=== PATIENT | male | born 1990 | race Caucasian/White ===

== ENCOUNTER 2017-03-15 17:27 | Emergency (ER) | payer SELFPAY ==
[2017-03-15 18:18] VITALS: BP 139/70; PULSE 86; RESP 13; TEMP 99.2; O2SAT 100
[2017-03-15 18:37] VITALS: BP 125/73; PULSE 86; RESP 18; TEMP 98.7; O2SAT 96
[2017-03-15] MEDS ORDERED: SODIUM CHLOR 0.9% 1000 ML INJ 1,000 ML IV SCH (18:57)
--- NOTE | 2017-03-15 19:02 | PD ---
HPI Chief Complaint: Alcohol/Drug Intoxication Time Seen by Provider: 18:45 Travel History International Travel<30 days: No Contact w/Intl Traveler<30days: No Traveled to known affect area: No History of Present Illness HPI 26-year-old male presents for evaluation of intoxication. The patient's personal history is limited secondary to patient uncooperativeness. 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 By the time they arrived he was standing and he was verbally aggressive and hostile and not answering many questions. They called the number on his phone and the patient apparently lives in [place]. He was visiting an ex-girlfriend today here in [facility] and he drank a lot of alcohol and she then kicked him out of the apartment after the argument. He was placed in restraints on the ambulance mcmahon prior to coming to the room where he was evaluated after he became physically aggressive [facility] Past Medical History Medical History: Unable to Obtain Past Surgical History Surgical History: Unable to Obtain Social History Alcohol Use: Yes Tobacco Use: No Substance Use: No Allergies-Medications (Allergen,Severity, Reaction): Coded Allergies: No Known Allergies (Verified Allergy, Unknown, 03/15/17) Review of Systems ROS Limitations: Intoxication, Combative Except as stated in HPI: all other systems reviewed are Neg Physical Exam Exam Limitations: Intoxication, Uncooperative Narrative GENERAL: This is a disheveled-appearing male who is agitated, unwilling to answer questions. He is currently in restraints. SKIN: Warm and dry. HEAD: Atraumatic. Normocephalic. EYES: Pupils equal and round. No scleral icterus. No injection or drainage. ENT: No nasal bleeding or discharge. Mucous membranes pink and moist. NECK: Trachea midline. No JVD. CARDIOVASCULAR: Regular rate and rhythm. No murmur appreciated. RESPIRATORY: No accessory muscle use. Clear to auscultation. Breath sounds equal bilaterally. GASTROINTESTINAL: Abdomen soft, non-tender, nondistended. Hepatic and splenic margins not palpable. MUSCULOSKELETAL: No obvious deformities. No clubbing. No cyanosis. No edema. NEUROLOGICAL: Awake and alert. No obvious cranial nerve deficits. Motor grossly within normal limits. Slurred speech, smells of alcohol. PSYCHIATRIC: Insight and judgment appear limited secondary to intoxication. Data Data Last Documented VS Vital Signs Date Time Temp Pulse Resp B/P (MAP) Pulse Ox O2 Delivery O2 Flow Rate FiO2 03/15/17 18:37 98.7 86 18 125/73 (90) 96 Orders Orders Complete Blood Count With Diff (03/15/17 18:57) Comprehensive Metabolic Panel (03/15/17 18:57) Creatine Kinase (Cpk) (03/15/17 18:57) Ct Brain W/O Iv Contrast(Rout) (03/15/17 18:57) Ecg Monitoring (03/15/17 18:57) Iv Access Insert/Monitor (03/15/17 18:57) Sodium Chlor 0.9% 1000 Ml Inj (Ns 1000 M (03/15/17 18:57) Drug Screen, Random Urine (03/15/17 18:57) Alcohol (Ethanol) (03/15/17 18:57) Potassium Chloride (Kcl) (03/15/17 20:45) Lorazepam Inj (Ativan Inj) (03/15/17 21:15) Restraints Violent (03/15/17 21:05) Labs Laboratory Tests Test 03/15/17 19:11 White Blood Count 6.8 TH/MM3 Red Blood Count 5.06 MIL/MM3 Hemoglobin 15.9 GM/DL Hematocrit 46.0 % Mean Corpuscular Volume 91.0 FL Mean Corpuscular Hemoglobin 31.5 PG Mean Corpuscular Hemoglobin Concent 34.5 % Red Cell Distribution Width 13.0 % Platelet Count 366 TH/MM3 Mean Platelet Volume 7.3 FL Neutrophils (%) (Auto) 77.4 % Lymphocytes (%) (Auto) 13.7 % Monocytes (%) (Auto) 7.7 % Eosinophils (%) (Auto) 0.6 % Basophils (%) (Auto) 0.6 % Neutrophils # (Auto) 5.3 TH/MM3 Lymphocytes # (Auto) 0.9 TH/MM3 Monocytes # (Auto) 0.5 TH/MM3 Eosinophils # (Auto) 0.0 TH/MM3 Basophils # (Auto) 0.0 TH/MM3 CBC Comment DIFF FINAL Differential Comment Blood Urea Nitrogen 5 MG/DL Creatinine 0.82 MG/DL Random Glucose 119 MG/DL Total Protein 6.4 GM/DL Albumin 3.6 GM/DL Calcium Level 7.9 MG/DL Alkaline Phosphatase 71 U/L Aspartate Amino Transf (AST/SGOT) 18 U/L Alanine Aminotransferase (ALT/SGPT) 25 U/L Total Bilirubin 0.3 MG/DL Sodium Level 145 MEQ/L Potassium Level 3.2 MEQ/L Chloride Level 110 MEQ/L Carbon Dioxide Level 26.0 MEQ/L Anion Gap 9 MEQ/L Estimat Glomerular Filtration Rate 113 ML/MIN Total Creatine Kinase 72 U/L Ethyl Alcohol Level 362 MG/DL [facility] Medical Decision Making Medical Screen Exam Complete: Yes Emergency Medical Condition: Yes Medical Record Reviewed: Yes Differential Diagnosis Alcohol intoxication, closed head injury, polysubstance abuse Narrative Course The patient was placed on ECG monitoring and pulse oximetry, plan is for basic lab work, IV fluids, CT brain. Lab work notable for alcohol level of 362, potassium level 3.2, oral potassium chloride ordered. The patient's CT imaging reveals no acute abnormality. At this point in time the patient will remain here until he is clinically sober and then he will be discharged. Diagnosis Primary Impression: Alcohol intoxication Qualified Codes: F10.920 - Alcohol use, unspecified with intoxication, uncomplicated Additional Impression: Hypokalemia Med/Other Pt SpecificInfo: No Change to Meds Disposition: 01 DISCHARGE HOME Condition: Stable Zach Rossi Mar 15, 2017 19:02
[2017-03-15 20:17] LABS: ANION GAP 9 MEQ/L (5-15); AST (GOT) 18 U/L (15-37); BLOOD UREA NITROGEN 5 MG/DL (7-18); CHLORIDE 110 MEQ/L (98-107); GLOMERULAR FILTRATION RATE 113 ML/MIN (>89); POTASSIUM 3.2 MEQ/L (3.5-5.1); SODIUM (NA) 145 MEQ/L (136-145)
[2017-03-15 20:19] LABS: AUTOMATED NEUTROPHIL # 5.3 TH/MM3 (1.8-7.7); BASOPHIL % 0.6 % (0.0-2.0); EOSINOPHIL % 0.6 % (0.0-4.0); HEMO FLAGS DIFF FINAL; LYMPH % 13.7 % (9.0-44.0); LYMPHOCYTE # 0.9 TH/MM3 (1.0-4.8); MEAN CORPUSCULAR HEMOGLOBIN 31.5 PG (27.0-34.0); MEAN CORPUSCULAR HGB CONC 34.5 % (32.0-36.0); MONO % 7.7 % (0.0-8.0); NEUT % 77.4 % (16.0-70.0); PLATELET COUNT 366 TH/MM3 (150-450); RED BLOOD COUNT 5.06 MIL/MM3 (4.50-5.90); WHITE BLOOD COUNT 6.8 TH/MM3 (4.0-11.0)
[2017-03-15 20:20] LABS: ALKALINE PHOSPHATASE 71 U/L (45-117); ALT (GPT) 25 U/L (12-78); TOTAL BILIRUBIN ADULT 0.3 MG/DL (0.2-1.0)
[2017-03-15 20:36] LABS: ALCOHOL 362 MG/DL (0-5); CREATINE KINASE 72 U/L (39-308)
[2017-03-15] MEDS ORDERED: POTASSIUM CHLORIDE 20 MEQ CONTROLLED RELEASE TAB PO ONE (20:45)
[2017-03-15] MEDS ORDERED: LORazepam 2 MG/ML VIAL IV PUSH ONE (21:15)
--- NOTE | 2017-03-15 22:48 | RADRPT ---
EXAM DATE/TIME: 03/15/2017 22:21 [place] COMPARISON: No previous studies available for comparison. INDICATIONS : Altered mental status. ETOH. RADIATION DOSE: 56.35 CTDIvol (mGy) MEDICAL HISTORY : Non-responsive. SURGICAL HISTORY : Non-responsive. ENCOUNTER: Initial ACUITY: 1 day PAIN SCALE: 0/10 LOCATION: cranial TECHNIQUE: Multiple contiguous axial images were obtained of the head. Using automated exposure control and adj ustment of the mA and/or kV according to patient size, radiation dose was kept as low as reasonably a chievable to obtain optimal diagnostic quality images. DICOM format image data is available electro nically for review and comparison. FINDINGS: CEREBRUM: The ventricles are normal for age. No evidence of midline shift, mass lesion, hemorrhage or acute in farction. No extra-axial fluid collections are seen. POSTERIOR FOSSA: The cerebellum and brainstem are intact. The 4th ventricle is midline. The cerebellopontine angle i s unremarkable. EXTRACRANIAL: The visualized portion of the orbits is intact. SKULL: The calvaria is intact. No evidence of skull fracture. CONCLUSION: Normal examination. Yosi Holloway MD on March 15, 2017 at 22:46 Board Certified Radiologist. This report was verified electronically.
[2017-03-16 06:13] VITALS: BP 135/74; PULSE 82; RESP 16; O2SAT 98
[2017-03-16 10:06] VITALS: BP 128/72; TEMP 98.1
== END 2017-03-16 10:28 | disposition home or self-care (01) ==
LOC: NEPE 17:27
DX: F10.920 Alcohol use, unspecified with intoxication, uncomplicated (principal); E87.6 Hypokalemia; Y90.8 Blood alcohol level of 240 mg/100 ml or more
CPT/HCPCS: 70450; 80053; 80307; 82550; 85025; 96361; 96374; 99285; J2060; J7030

== ENCOUNTER 2017-04-16 03:19 | Emergency (ER) | payer OTHER ==
[~2017-04-16] VITALS: Ht 170.2 cm; Wt 85.0 kg
[2017-04-16 03:25] VITALS: BP 120/73; PULSE 100; RESP 18; TEMP 98.4; O2SAT 100
--- NOTE | 2017-04-16 03:31 | PD ---
HPI Chief Complaint: alcohol intoxication Time Seen by Provider: 03:30 Travel History International Travel<30 days: No Contact w/Intl Traveler<30days: No History of Present Illness HPI Patient comes in with police escort under [employer] act at being found at a location that he doesn't know he got to. Patient reportedly has been drinking and was upset because is lost his shoes per [employer] act. Patient states that he drinks heavily daily combination of liquor and [employer]. Denies anything making it better or worse. Denies any medical concerns at this time. Denies any chest pain, shortness breath, fevers, nausea, vomiting, abdominal pain, numbness or tingling anywhere. PFSH Past Medical History Medical History: Denies Significant Hx Social History Alcohol Use: Yes Tobacco Use: No Substance Use: No Allergies-Medications (Allergen,Severity, Reaction): Coded Allergies: No Known Allergies (Verified , 04/16/17) Review of Systems Except as stated in HPI: all other systems reviewed are Neg Physical Exam Narrative GENERAL: Well-developed, well nourished, in no acute distress, and non-ill appearing. SKIN: Focused skin assessment warm and dry. HEAD: Atraumatic. Normocephalic. EYES: Pupils equal and round. EOMI. No scleral icterus. No injection or drainage. ENT: No nasal bleeding or discharge. Mucous membranes pink and moist. NECK: Trachea midline. Supple. No nuclear rigidity. CARDIOVASCULAR: Regular rate and rhythm. No murmur appreciated. RESPIRATORY: No accessory muscle use. No respiratory distress. Clear to auscultation. Breath sounds equal bilaterally. MUSCULOSKELETAL: No obvious deformities. No clubbing. No cyanosis. No edema. Full range of motion. Normal gait. NEUROLOGICAL: Awake and alert. No obvious cranial nerve deficits. Motor grossly within normal limits. Normal speech. PSYCHIATRIC: Appropriate mood and affect; insight and judgment normal. Data Data Last Documented VS Vital Signs Date Time Temp Pulse Resp B/P (MAP) Pulse Ox O2 Delivery O2 Flow Rate FiO2 04/16/17 03:25 98.4 100 18 120/73 (89) 100 Orders Orders Acetaminophen (Tylenol) (04/16/17 03:45) [facility] Medical Decision Making Medical Screen Exam Complete: Yes Emergency Medical Condition: Yes Differential Diagnosis Alcohol intoxication, alcohol abuse, malingering, other Narrative Course Patient was seen and examined. Patient will be monitored in the emergency department until clinically sober and able to ambulate on their own or until a sober responsible adult comes to pick them up. RN is aware of this. Diagnosis Primary Impression: Alcohol abuse Referrals: [facility] Patient Instructions: Abuse of Alcohol (ED), General Instructions Additional Instructions: Follow-up with your primary care physician and/or Liam Esparza for detox. Return to the emergency department if symptoms get worse. Disposition: 01 DISCHARGE HOME Condition: Stable Kwaku Olsen Apr 16, 2017 03:31
[2017-04-16] MEDS ORDERED: ACETAMINOPHEN 500 MG CPLT PO ONE (03:45)
== END 2017-04-16 08:18 | disposition home or self-care (01) ==
LOC: NEPD 03:19
DX: F10.10 Alcohol abuse, uncomplicated (principal)
CPT/HCPCS: 99283